=== PATIENT | female | born 1985 | race Caucasian/White ===

== ENCOUNTER 2022-02-14 13:06 | Outpatient (CLI) | payer OTHER | END 2022-02-14 13:17 | disposition home or self-care (01) | LOC: RAD 13:06 | PROVIDERS: ATTEND Orthopaedic Surgery | DX: S92.351A Displaced fracture of fifth metatarsal bone, right foot, initial encounter for closed fracture (principal); S92.344A Nondisplaced fracture of fourth metatarsal bone, right foot, initial encounter for closed fracture; R07.9 Chest pain, unspecified ==

== ENCOUNTER 2022-03-14 16:00 | Outpatient (CLI) | payer OTHER | END 2022-03-14 16:11 | disposition home or self-care (01) | LOC: RAD 16:00 | PROVIDERS: ATTEND Orthopaedic Surgery | DX: S92.351D Displaced fracture of fifth metatarsal bone, right foot, subsequent encounter for fracture with routine healing (principal); S92.344D Nondisplaced fracture of fourth metatarsal bone, right foot, subsequent encounter for fracture with routine healing ==

== ENCOUNTER 2022-06-10 13:10 | Outpatient (CLI) | payer OTHER | END 2022-06-10 13:19 | disposition home or self-care (01) | LOC: RAD 13:10 | PROVIDERS: ATTEND Orthopaedic Surgery | DX: S92.351A Displaced fracture of fifth metatarsal bone, right foot, initial encounter for closed fracture (principal); S92.344A Nondisplaced fracture of fourth metatarsal bone, right foot, initial encounter for closed fracture ==